=== PATIENT | female | born 1960 | race Hispanic/Latino ===

== ENCOUNTER 2016-05-28 20:41 | Observation (INO) | payer MEDICAID ==
[2016-05-28 20:42] VITALS: BMI 19.8
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
[2016-05-28 21:01] VITALS: TEMP 98.9
[2016-05-29 03:48] VITALS: BP 119/84; PULSE 88; RESP 16; O2SAT 99
== END 2016-05-29 05:43 | disposition home or self-care (01) ==
LOC: C.ER 20:41 → C.9OBSV 21:30
PROVIDERS: ADMIT Emergency Medicine; ATTEND Emergency Medicine
DX: F10.229 Alcohol dependence with intoxication, unspecified (principal); I10 Essential (primary) hypertension; F20.9 Schizophrenia, unspecified
CPT/HCPCS: 82948; 99283; G0378

== ENCOUNTER 2017-10-18 20:00 | Emergency (ER) | payer SELFPAY ==
[2017-10-18 20:00] VITALS: BMI 19.3
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
[2017-10-18 20:21] VITALS: TEMP 98.7
[2017-10-19 06:06] VITALS: BP 126/75; PULSE 87; RESP 76; O2SAT 99
== END 2017-10-19 06:35 | disposition home or self-care (01) ==
LOC: C.ER 20:00
DX: F10.129 Alcohol abuse with intoxication, unspecified (principal); Y90.9 Presence of alcohol in blood, level not specified
CPT/HCPCS: 82948; 96372; 99284; J1630; J2060